=== PATIENT | female | born 1945 | race Caucasian/White ===

== ENCOUNTER 2019-01-12 05:41 | Day surgery (SDC) | payer MEDICARE, OTHER ==
[2019-01-12] MEDS ORDERED: TROP 1%/CYCLOPEN 1%/PHENYL 2% DROPS ONE (07:00)
[2019-01-12] MEDS ORDERED: PROPARACAINE 0.5% OPHTH SOL 15 ML BTTL ONE (07:00)
[2019-01-12] MEDS ORDERED: TOBRAMYCIN SULF 0.3 % OPHT SOL 1 DROP ONE (07:00)
== END 2019-01-12 07:27 | disposition home or self-care (01) ==
LOC: AMB 05:41
PROVIDERS: ATTEND Ophthalmology
DX: H26.491 Other secondary cataract, right eye (principal); E11.36 Type 2 diabetes mellitus with diabetic cataract; I10 Essential (primary) hypertension; Z79.84 Long term (current) use of oral hypoglycemic drugs